=== PATIENT | female | born 1970 | race Caucasian/White ===

== ENCOUNTER 2017-04-19 15:42 | Emergency (ER) | payer OTHER ==
[~2017-04-19] VITALS: Ht 165.1 cm; Wt 65.0 kg
[2017-04-19 16:03] VITALS: Ht 165.1 cm; Wt 65.0 kg
[2017-04-19] MEDS ORDERED: KETOROLAC 15 MG INJ IV STA (16:47)
[2017-04-19] MEDS ORDERED: SOD CHLORIDE 0.9% 1,000 ML IV STA (16:47)
[2017-04-19] MEDS ORDERED: ONDANSETRON 4 MG INJ IV STA (16:47)
--- NOTE | 2017-04-19 17:08 | RADRPT ---
PROCEDURE: Chest x-ray CLINICAL INDICATION: Chest pain TECHNIQUE: Chest single view COMPARISON: None FINDINGS: The heart is normal in size. The pulmonary vessels are normal in caliber. The lungs are clear. Th e costophrenic angles are sharp. The visualized bony thorax is unremarkable. IMPRESSION: No acute cardiopulmonary disease. RPTAT: HH .Niles Martínez MD, Date Time Electronically viewed and signed by .Niles Martínez MD, MD on 04/19/2017 17:08 .W/
[2017-04-19 17:20] LABS: BASOPHIL # 0.1 10^3/ul (0.0-0.1); BASOPHILS % 0.5 % (0.0-2.0); EOSINOPHILS # 0.1 10^3/ul (0.0-0.5); EOSINOPHILS % 1.1 % (0.0-7.0); HEMOGLOBIN 14.2 g/dl (12.0-16.0); LYMPHOCYTES # 1.9 10^3/ul (0.8-2.9); LYMPHOCYTES % 16.3 % (15.0-51.0); MEAN CORPUSCULAR HEMOGLOBIN 27.4 pg (29.0-33.0); MEAN CORPUSCULAR HGB CONC 32.3 g/dl (32.0-37.0); MEAN CORPUSCULAR VOLUME 84.8 fl (82.0-101.0); MONOCYTE # 0.7 10^3/ul (0.3-0.9); MONOCYTES % 6.1 % (0.0-11.0); NEUTROPHIL # 8.9 10^3/ul (1.6-7.5); NEUTROPHILS % 75.7 % (39.0-77.0); PLATELET COUNT 295 10^3/UL (140-415); RED BLOOD COUNT 5.19 10^6/ul (4.20-5.40); WHITE BLOOD COUNT 11.8 10^3/ul (4.8-10.8)
[2017-04-19 17:24] LABS: ADD UMIC NO; UR ASCORBIC ACID 20 mg/dL (NEGATIVE); UR BILIRUBIN (Dip) NEGATIVE (NEGATIVE); UR BLOOD (Dip) NEGATIVE (NEGATIVE); UR CLARITY CLEAR (CLEAR); UR COLOR STRAW (YELLOW); UR GLUCOSE (Dip) NEGATIVE (NEGATIVE); UR KETONES (Dip) NEGATIVE (NEGATIVE); UR LEUKOCYTE ESTERASE (Dip) NEGATIVE Leu/ul (NEGATIVE); UR NITRITE (Dip) NEGATIVE (NEGATIVE); UR SPECIFIC GRAVITY (Dip) 1.005 (1.003-1.030); UR TOTAL PROTEIN (Dip) NEGATIVE (NEGATIVE); UR UROBILINOGEN (Dip) NEGATIVE (NEGATIVE)
[2017-04-19 17:37] LABS: ALANINE AMINOTRANSFERASE 48 IU/L (13-69); ALBUMIN 4.4 g/dl (3.3-4.9); ALBUMIN/GLOBULIN RATIO 1.07; ALKALINE PHOSPHATASE 97 IU/L (42-121); ANION GAP 15 (8-16); ASPARTATE AMINO TRANSFERASE 28 IU/L (15-46); BILIRUBIN,INDIRECT 0.2 mg/dl (0-1.1); BILIRUBIN,TOTAL 0.2 mg/dl (0.2-1.3); BLOOD UREA NITROGEN 9 mg/dl (7-20); CALCIUM 9.6 mg/dl (8.4-10.2); CARBON DIOXIDE 27 mmol/L (21-31); CHLORIDE 103 mmol/L (97-110); CREATININE 0.72 mg/dl (0.44-1.00); GLUCOSE 116 mg/dl (70-220); POTASSIUM 3.9 mmol/L (3.5-5.1); SODIUM 141 mmol/L (135-144); TOTAL PROTEIN 8.5 g/dl (6.1-8.1)
[2017-04-19] MEDS ORDERED: VITA200C36 PO (17:45)
[2017-04-19] MEDS ORDERED: CYAN100T PO (17:46)
[2017-04-19] MEDS ORDERED: ASCO500C7 PO (17:46)
[2017-04-19] MEDS ORDERED: LACT1CAP56 PO (17:48)
[2017-04-19] MEDS ORDERED: BIOT800T PO (17:48)
[2017-04-19] MEDS ORDERED: OMEG-155 PO (17:49)
[2017-04-19 17:52] LABS: TROPONIN-I < 0.012 ng/ml (0.00-0.12)
[2017-04-19] MEDS ORDERED: HYDR25TA6 PO (18:01)
[2017-04-19] MEDS ORDERED: NAPR-688 PO (18:01)
[2017-04-19 18:22] VITALS: BP 154/87; PULSE 88; RESP 18
--- NOTE | 2017-04-19 19:30 | ERD ---
ER Documentation Chief Complaint Chief Complaint BIBA FOR NON RADIATING CP FROM [facility] HPI 47-year-old woman presents with multiple symptoms including sharp nonexertional nonradiating chest pain 4 days, headache 3 days, and elevated blood pressure. She states she has been checking her blood pressure multiple times daily for the last 3-4 days and sometimes systolic blood pressures about 180 mmHg. She denies history of hypertension and denies medication use. She has no personal risk factors or family history of early coronary artery disease or sudden cardiac . She denies weight loss, no fevers or chills, no blurry vision, no weakness in her arms or legs, no slurred speech. Patient denies abdominal pain or dysuria. ROS All systems reviewed and are negative except as per history of present illness. Medications Home Meds Active Scripts Naproxen* (Naproxen*) 500 Mg Tablet, 500 MG PO BID Y for PAIN, #30 TAB Prov:JINA BAEZ MD 04/19/17 Hydrochlorothiazide* (Hydrochlorothiazide*) 25 Mg Tab, 25 MG PO DAILY, #30 TAB Prov:JINA BAEZ MD 04/19/17 Reported Medications [place]-3S/Dha/Epa/Fish Oil (Fish Oil [place]-3 Softgel) 1 Each Capsule.dr, 1 EACH PO DAILY 04/19/17 Lactobacillus Combo No.11 (Probiotic) 1 Each Cap.sprink, 1 CAP PO DAILY, CAP 04/19/17 Biotin (Biotin) Unknown Strength Tablet, 1 TAB PO DAILY, TAB 04/19/17 Ascorbic Acid* (Vitamin C*) Unknown Strength Capsule.sa, 1 CAP PO DAILY, CAP 04/19/17 Cyanocobalamin* (Vitamin B-12*) Unknown Strength Tablet, 1 TAB PO DAILY, TAB 04/19/17 Vitamin E* (Vitamin E*) Unknown Strength Capsule, 1 CAP PO DAILY, CAP 04/19/17 Allergies Allergies: Coded Allergies: No Known Allergy (Unverified , 04/19/17) PMhx/Soc None, possibly hypertension undiagnosed History of Surgery: No Anesthesia Reaction: No Hx Neurological Disorder: No Hx Respiratory Disorders: No Hx Cardiac Disorders: No Hx Psychiatric Problems: No Hx Miscellaneous Medical Probl: No Hx Alcohol Use: No Hx Substance Use: No Hx Tobacco Use: No Smoking Status: Never smoker FmHx Family History: No diabetes Physical Exam Vitals Vital Signs Date Time Temp Pulse Resp B/P Pulse Ox O2 Delivery O2 Flow Rate FiO2 04/19/17 18:22 88 18 154/87 99 Room Air 04/19/17 17:28 93 18 154/87 98 Room Air 04/19/17 16:03 98.9 103 18 127/82 98 Physical Exam GENERAL: Well-developed, well-nourished, well-hydrated, in no apparent distress , looks nontoxic in appearance HEENT: Moist mucous membranes, pink conjunctiva, no cervical spine tenderness or step-off deformities, no goiter, no jaundice or icterus, extraocular movements intact without pain. No submandibular induration, and no pharyngeal erythema NEURO: Alert and oriented 3, cranial nerves II through XII intact bilaterally, pupils equal round reactive to light, no focal deficits or facial asymmetry, sensation intact distally Strength 5/5 in upper and lower extremities bilaterally CARDIAC: Regular rate and rhythm, no murmurs rubs or gallops LUNGS: Clear bilaterally no wheezing crackles or stridor ABDOMEN: Soft nontender, no guarding, no rigidity, no rebound, no psoas sign no obturator sign. Normoactive bowel sounds SKIN: Warm and dry to touch, no abrasions, contusions, or hematomas, no lacerations, no ecchymosis, no target lesions, and without ulcers EXTREMITIES: No clubbing cyanosis or edema, calves are bilaterally symmetrical, no Homans sign, no popliteal cord sign. Distal pulses equal and bilateral PSYCH: Normal affect without agitation or irritability Result Diagram: 04/19/17 1700 04/19/17 1700 Results 24 hrs Laboratory Tests Test 04/19/17 17:00 White Blood Count 11.810^3/ul Red Blood Count 5.1910^6/ul Hemoglobin 14.2g/dl Hematocrit 44.0% Mean Corpuscular Volume 84.8fl Mean Corpuscular Hemoglobin 27.4pg Mean Corpuscular Hemoglobin Concent 32.3g/dl Red Cell Distribution Width 12.0% Platelet Count 74967^3/UL Mean Platelet Volume 10.0fl Neutrophils % 75.7% Lymphocytes % 16.3% Monocytes % 6.1% Eosinophils % 1.1% Basophils % 0.5% Nucleated Red Blood Cells % 0.0/100WBC Neutrophils # 8.910^3/ul Lymphocytes # 1.910^3/ul Monocytes # 0.710^3/ul Eosinophils # 0.110^3/ul Basophils # 0.110^3/ul Nucleated Red Blood Cells # 0.010^3/ul Urine Color STRAW Urine Clarity CLEAR Urine pH 7.0 Urine Specific [place] 1.005 Urine Ketones NEGATIVEmg/dL Urine Nitrite NEGATIVEmg/dL Urine Bilirubin NEGATIVEmg/dL Urine Urobilinogen NEGATIVEmg/dL Urine Leukocyte Esterase NEGATIVELeu/ul Urine Hemoglobin NEGATIVEmg/dL Urine Glucose NEGATIVEmg/dL Urine Total Protein NEGATIVEmg/dl Sodium Level 141mmol/L Potassium Level 3.9mmol/L Chloride Level 103mmol/L Carbon Dioxide Level 27mmol/L Anion Gap 15 Blood Urea Nitrogen 9mg/dl Creatinine 0.72mg/dl Glucose Level 116mg/dl Calcium Level 9.6mg/dl Total Bilirubin 0.2mg/dl Direct Bilirubin 0.00mg/dl Indirect Bilirubin 0.2mg/dl Aspartate Amino Transf (AST/SGOT) 28IU/L Alanine Aminotransferase (ALT/SGPT) 48IU/L Alkaline Phosphatase 97IU/L Troponin I < 0.012ng/ml Total Protein 8.5g/dl Albumin 4.4g/dl Globulin 4.10g/dl Albumin/Globulin Ratio 1.07 Lipase 45U/L Current Medications Medications (Trade) Dose Ordered Sig/Anand Route PRN Reason Start Time Stop Time Status Last Admin Dose Admin Sodium Chloride (NS) 1,000 ml @ 1,000 mls/hr Q1H STAT IV 04/19/17 16:47 04/19/17 17:49 DC 04/19/17 17:03 Ondansetron HCl (Zofran Inj) 4 mg ONCE STAT IV 04/19/17 16:47 04/19/17 16:48 DC 04/19/17 17:02 Ketorolac Tromethamine (Toradol) 15 mg ONCE STAT IV 04/19/17 16:47 04/19/17 16:48 DC 04/19/17 17:02 Procedures/[facility] IV line was established patient was placed on tapper bit rhythm strip revealed a sinus rhythm at about 90 bpm with upright P and T waves. Patient was afebrile EKG performed, read by me revealed a normal sinus rhythm at 95 bpm, normal axis , narrow QRS complex, evidence of left ventricular hypertrophy in lead I, no concerning ST elevations or depressions noted. Chest X-ray 1V Interpreted by me: Soft Tissue: No acute abnormalities Bones: No acute abnormalities Mediastinum/Cardiac Silhouette/Lungs: No acute abnormalities I administered 1 L normal saline intravenously, Zofran 4 mg IV, and Toradol 15 mg IV 1 with good response. CBC and electrolytes were normal, liver function tests were normal, troponin was negative. Urine analysis was negative for infection. Patient is asymptomatic at this time and her vital signs are normal although she did present with significant blood pressure elevation I suspect she does have hypertension. She will be managed as an outpatient with antihypertensives until she sees her PMD for medication readjustment and further advice. Differential diagnoses considered, included but not limited to acute coronary syndrome, pulmonary embolism, aortic dissection, abdominal aortic aneurysm, sepsis, stroke, meningitis, encephalitis, pneumonia, appendicitis, cholecystitis , bowel obstruction, pyelonephritis, nephrolithiasis, cystitis, as well as metabolic, hematologic, and electrolyte abnormalities. As well as abscess, cellulitis, fractures, and dislocations. Patient feels much better at this time, and vital signs are normal, symptoms have improved. I did give strict instructions to return to the ED if symptoms continue or worsen, patient will otherwise follow-up with primary care physician. Patient understood instructions and agreed to plan. Disclaimer: Inadvertent spelling and grammatical errors are likely due to EHR/ dictation software use and do not reflect on the overall quality of patient care. Also, please note that the electronic time recorded on this note does not necessarily reflect the actual time of the patient encounter. Departure Diagnosis: Primary Impression: Hypertension Hypertension type: essential hypertension Qualified Code: I10 - Essential hypertension Additional Impressions: Headache Headache type: tension-type Headache chronicity pattern: acute headache Intractability: not intractable Qualified Code: G44.209 - Acute non intractable tension-type headache Chest pain Chest pain type: unspecified Qualified Code: R07.9 - Chest pain, unspecified type Condition: Good Patient Instructions: Chest Pain, Uncertain Cause, Headache, Tension, Hypertension, New (Begin Treatment) JINA BAEZ MD Apr 19, 2017 19:30
== END 2017-04-19 18:25 | disposition home or self-care (01) ==
LOC: E/R 15:42
DX: I10 Essential (primary) hypertension (principal); G44.209 Tension-type headache, unspecified, not intractable
CPT/HCPCS: 36415; 71010; 80053; 81003; 83690; 84484; 85025; 93005; 96374; 96375; J1885; J2405; J7030; Z7502